=== PATIENT | male | born 1980 | race Caucasian/White ===

== ENCOUNTER 2017-12-16 23:51 | Inpatient (IN) | payer OTHER ==
[2017-12-17] MEDS: LIDO:MAALOX:DONNATAL 1:1:1 15 ML SINGLE DOSE SWSW (01:18)
[2017-12-17 01:23] LABS: BASO # 0.1 x10^3/uL (0.0-0.2); BASO % 1 % (0-3); EOS % 0 % (0-3); HEMATOCRIT 34.6 % (39.0-53.0); HEMOGLOBIN 11.6 g/dL (13.0-17.5); LYMPH # 1.8 x10^3/uL (1.0-4.8); LYMPH % 10 % (24-48); MEAN CORPUSCULAR HEMOGLOBIN 30 pg (25-35); MEAN CORPUSCULAR HGB CONC 34 g/dL (31-37); MEAN CORPUSCULAR VOLUME 90 fL (79-100); MONO % 6 % (0-9); NEUT # 14.2 x10^3uL (1.8-7.7); NEUT % 83 % (31-73); PLATELET COUNT 306 x10^3/uL (140-400); RED BLOOD COUNT 3.84 x10^6/uL (4.30-5.70); RED CELL DISTRIBUTION WIDTH 12.7 % (11.5-14.5)
[2017-12-17 01:24] LABS: ADD MAN DIFF? YES
[2017-12-17 01:33] LABS: ANION GAP 9 (6-14); BLOOD UREA NITROGEN 17 mg/dL (8-26); BUN/CREATININE RATIO 17 (6-20); CALCIUM 8.8 mg/dL (8.5-10.1); CARBON DIOXIDE 28 mmol/L (21-32); CHLORIDE 105 mmol/L (98-107); GFR 84.5; GLUCOSE 136 mg/dL (70-99); POTASSIUM 4.6 mmol/L (3.5-5.1); SODIUM 142 mmol/L (136-145)
[2017-12-17 01:39] LABS: ALBUMIN 3.5 g/dL (3.4-5.0); ALBUMIN/GLOBULIN RATIO 1.1 (1.0-1.7); ALK PHOS 98 U/L (46-116); ALT (SGPT) 19 U/L (16-63); AST (SGOT) 12 U/L (15-37); TOTAL BILIRUBIN 0.2 mg/dL (0.2-1.0); TOTAL PROTEIN 6.8 g/dL (6.4-8.2)
[2017-12-17 01:57] LABS: CREATINE KINASE 55 U/L (39-308)
[2017-12-17 01:57] LABS: LIPASE 154 U/L (73-393)
[2017-12-17] MEDS: KETOROLAC 15 MG/ML VIAL. IV (02:04)
[2017-12-17] MEDS: IV NORMAL SALINE 1000ML BAG 1,000 ML IV (02:05)
[2017-12-17 02:10] LABS: % EOS 1 % (0-5); % LYMPHS 14 % (24-48); % MONOS 6 % (0-10); % SEGS 79 % (35-66); ANISOCYTOSIS SLIGHT; PLT ESTIMATE ADEQUATE (ADEQUATE)
[2017-12-17 02:47] LABS: BARBITURATES NEG (NEG); BENZODIAZEPINES NEG (NEG); CANNABINOIDS NEG (NEG); COCAINE POS (NEG); METHADONE NEG (NEG); OPIATES NEG (NEG); PHENCYCLIDINE NEG (NEG)
[2017-12-17 02:49] LABS: AMPHETAMINE/METHAMPHETAMINE NEG (NEG); ETHANOL, URINE NEG (NEG)
[2017-12-17] MEDS ORDERED: LIDO:MAALOX:DONNATAL 1:1:1 15 ML SINGLE DOSE SWSW (03:00)
[2017-12-17] MEDS: fentaNYL PF VIAL 100 MCG/2 ML VIAL IV ×4 (03:00→09:04)
[2017-12-17] MEDS ORDERED: SUCRALFATE 1 GM/10 ML ORAL.SUSP. PO (03:00)
[2017-12-17] MEDS ORDERED: CONTRAST GIVEN MC (03:15)
[2017-12-17] MEDS: IOHEXOL 300 MG/ML 100ML VIAL. IV (03:57)
[2017-12-17] MEDS ORDERED: ONDANSETRON PF 4 MG/2 ML VIAL. IV (04:45)
[2017-12-17] MEDS: MORPHINE SULFATE 4 MG/ML DISP.SYRIN. IV (07:59)
[2017-12-17 09:01] LABS: HEMATOCRIT 29.2 % (39.0-53.0); HEMOGLOBIN 9.7 g/dL (13.0-17.5); MEAN CORPUSCULAR HEMOGLOBIN 30 pg (25-35); MEAN CORPUSCULAR HGB CONC 33 g/dL (31-37); MEAN CORPUSCULAR VOLUME 90 fL (79-100); PLATELET COUNT 245 x10^3/uL (140-400); RED BLOOD COUNT 3.24 x10^6/uL (4.30-5.70); WHITE BLOOD COUNT 12.3 x10^3/uL (4.0-11.0)
[2017-12-17 09:11] LABS: INR 1.3 (0.8-1.1); PROTHROMBIN TIME PATIENT 15.2 SEC (11.7-14.0)
[2017-12-17 22:20] LABS: MRSA BY PCR Negative (Negative)
== END 2017-12-17 11:14 | disposition left against medical advice (07) | DRG 814 ==
LOC: ER 23:51 → 1 WEST ICU 12-17 03:02
DX: S36.039A Unspecified laceration of spleen, initial encounter (principal); K66.1 Hemoperitoneum; Z53.21 Procedure and treatment not carried out due to patient leaving prior to being seen by health care provider; F14.90 Cocaine use, unspecified, uncomplicated; X58.XXXA Exposure to other specified factors, initial encounter; F17.210 Nicotine dependence, cigarettes, uncomplicated; Z82.5 Family history of asthma and other chronic lower respiratory diseases; Y93.89 Activity, other specified; Y92.89 Other specified places as the place of occurrence of the external cause; Y99.8 Other external cause status
CPT/HCPCS: 36415; 74150; 74177; 80053; 80307; 82550; 83690; 85007; 85025; 85027; 85610; 86850; 86900; 86901; 87641; 96361; 96374; 96375; 96376; 99291-25; J1885; J2270; J3010; J7030; Q9967

== ENCOUNTER 2018-01-05 16:27 | Inpatient (IN) | payer OTHER ==
[2018-01-05] MEDS: IV NORMAL SALINE 1000ML BAG 1,000 ML IV ×2 (16:57)
[2018-01-05 17:08] LABS: ADD MAN DIFF? NO
[2018-01-05 17:10] LABS: BASO # 0.1 x10^3/uL (0.0-0.2); BASO % 1 % (0-3); EOS # 0.1 x10^3/uL (0.0-0.7); EOS % 1 % (0-3); HEMATOCRIT 48.3 % (39.0-53.0); HEMOGLOBIN 15.9 g/dL (13.0-17.5); LYMPH # 1.2 x10^3/uL (1.0-4.8); LYMPH % 13 % (24-48); MEAN CORPUSCULAR HEMOGLOBIN 29 pg (25-35); MEAN CORPUSCULAR HGB CONC 33 g/dL (31-37); MEAN CORPUSCULAR VOLUME 89 fL (79-100); MONO # 0.8 x10^3/uL (0.0-1.1); MONO % 9 % (0-9); NEUT # 6.9 x10^3uL (1.8-7.7); NEUT % 76 % (31-73); PLATELET COUNT 438 x10^3/uL (140-400); RED BLOOD COUNT 5.42 x10^6/uL (4.30-5.70); RED CELL DISTRIBUTION WIDTH 13.4 % (11.5-14.5)
[2018-01-05] MEDS: ONDANSETRON PF 4 MG/2 ML VIAL. IV ×4 (17:10→20:32)
[2018-01-05 17:24] LABS: BILIRUBIN,URINE SMALL (NEG); COLOR,URINE YELLOW; GLUCOSE,URINE NEGATIVE (NEG); NITRITE,URINE NEGATIVE (NEG); PROTEIN,URINE NEGATIVE (NEG-TRACE)
[2018-01-05 17:25] LABS: ANION GAP 11 (6-14); BLOOD UREA NITROGEN 27 mg/dL (8-26); BUN/CREATININE RATIO 21 (6-20); CALCIUM 8.9 mg/dL (8.5-10.1); CARBON DIOXIDE 28 mmol/L (21-32); CHLORIDE 100 mmol/L (98-107); CREATININE 1.3 mg/dL (0.7-1.3); GFR 62.5; GLUCOSE 96 mg/dL (70-99); SODIUM 139 mmol/L (136-145)
[2018-01-05 17:31] LABS: ALBUMIN 4.1 g/dL (3.4-5.0); ALBUMIN/GLOBULIN RATIO 0.9 (1.0-1.7); ALK PHOS 159 U/L (46-116); ALT (SGPT) 19 U/L (16-63); AST (SGOT) 14 U/L (15-37); CLARITY,URINE HAZY; LIPASE 83 U/L (73-393); TOTAL BILIRUBIN 0.4 mg/dL (0.2-1.0); TOTAL PROTEIN 8.6 g/dL (6.4-8.2)
[2018-01-05 17:34] LABS: BACTERIA,URINE 0 /HPF (0-FEW); HYALINE CASTS, URINE FEW /HPF; RBC,URINE 0 /HPF (0-2); WBC,URINE 0 /HPF (0-4)
[2018-01-05 17:43] LABS: BARBITURATES NEG (NEG); BENZODIAZEPINES NEG (NEG); CANNABINOIDS NEG (NEG); COCAINE NEG (NEG); METHADONE NEG (NEG); OPIATES NEG (NEG); PHENCYCLIDINE NEG (NEG)
[2018-01-05 17:44] LABS: AMPHETAMINE/METHAMPHETAMINE NEG (NEG)
[2018-01-05 17:45] LABS: ETHANOL, URINE NEG (NEG)
[2018-01-05] MEDS ORDERED: IOHEXOL 300 MG/ML 100ML VIAL. IV ×2 (18:30)
[2018-01-05] MEDS ORDERED: MORPHINE SULFATE 2 MG/ML DISP.SYRIN. IV ×2 (19:45)
[2018-01-05] MEDS ORDERED: ACETAMINOPHEN 325 MG TABLET. PO ×2 (19:45)
[2018-01-05] MEDS: MORPHINE SULFATE 4 MG/ML DISP.SYRIN. IV ×4 (20:32→22:45)
[2018-01-06] MEDS: MORPHINE SULFATE 4 MG/ML DISP.SYRIN. IV ×12 (01:08→14:37)
[2018-01-06 04:55] LABS: ADD MAN DIFF? NO
[2018-01-06 05:00] LABS: BASO # 0.1 x10^3/uL (0.0-0.2); BASO % 1 % (0-3); EOS # 0.2 x10^3/uL (0.0-0.7); EOS % 2 % (0-3); HEMATOCRIT 41.7 % (39.0-53.0); HEMOGLOBIN 13.9 g/dL (13.0-17.5); LYMPH # 2.2 x10^3/uL (1.0-4.8); LYMPH % 25 % (24-48); MEAN CORPUSCULAR HEMOGLOBIN 30 pg (25-35); MEAN CORPUSCULAR HGB CONC 33 g/dL (31-37); MEAN CORPUSCULAR VOLUME 89 fL (79-100); MONO # 0.9 x10^3/uL (0.0-1.1); MONO % 9 % (0-9); NEUT # 5.7 x10^3uL (1.8-7.7); NEUT % 63 % (31-73); PLATELET COUNT 363 x10^3/uL (140-400); RED CELL DISTRIBUTION WIDTH 13.4 % (11.5-14.5); WHITE BLOOD COUNT 9.1 x10^3/uL (4.0-11.0)
[2018-01-06 05:59] LABS: ALBUMIN 3.3 g/dL (3.4-5.0); ALBUMIN/GLOBULIN RATIO 0.8 (1.0-1.7); ALK PHOS 134 U/L (46-116); ALT (SGPT) 13 U/L (16-63); ANION GAP 10 (6-14); AST (SGOT) 11 U/L (15-37); BLOOD UREA NITROGEN 18 mg/dL (8-26); BUN/CREATININE RATIO 16 (6-20); CALCIUM 8.6 mg/dL (8.5-10.1); CARBON DIOXIDE 27 mmol/L (21-32); CHLORIDE 102 mmol/L (98-107); CREATININE 1.1 mg/dL (0.7-1.3); GFR 75.7; GLUCOSE 98 mg/dL (70-99); POTASSIUM 3.8 mmol/L (3.5-5.1); SODIUM 139 mmol/L (136-145); TOTAL BILIRUBIN 0.5 mg/dL (0.2-1.0); TOTAL PROTEIN 7.2 g/dL (6.4-8.2)
[2018-01-06] MEDS: TOPIRAMATE 25 MG TABLET. PO ×2 (09:00)
[2018-01-06] MEDS: IV NORMAL SALINE 1000ML BAG 1,000 ML IV ×2 (09:14)
[2018-01-06] MEDS: HYDROcodone/APAP 5/325MG 1 TAB TABLET PO ×2 (18:30)
== END 2018-01-06 20:00 | disposition home or self-care (01) | DRG 394 ==
LOC: 5 SOUTH 20:57 → ER 16:27 → 5 SOUTH 19:42
DX: K37 Unspecified appendicitis (principal); S22.42XA Multiple fractures of ribs, left side, initial encounter for closed fracture; R56.9 Unspecified convulsions; S36.039A Unspecified laceration of spleen, initial encounter; S30.1XXA Contusion of abdominal wall, initial encounter; F17.210 Nicotine dependence, cigarettes, uncomplicated; X58.XXXA Exposure to other specified factors, initial encounter; Y93.89 Activity, other specified; Y92.89 Other specified places as the place of occurrence of the external cause; Y99.8 Other external cause status
CPT/HCPCS: 36415; 74177; 80053; 80307; 81001; 83690; 85025; 96361; 96374; 96375; 96376; 99285-25; J2270; J2405; J7030